=== PATIENT | female | born 1980 ===

== ENCOUNTER 2025-04-27 10:03 | Emergency (ER) | payer BC, SELFPAY ==
[2025-04-27 10:19] VITALS: BP 174/112
[2025-04-27 11:20] LABS: Urine Character Clear (Clear)
[2025-04-27 11:26] LABS: Hematocrit 42.2 % (37.0-47.0); Hemoglobin 13.9 g/dL (12.0-16.0); Mean Corp Hgb Conc. 32.9 g/dL (33.0-37.0); Mean Corpuscular Volume 89.4 fL (81.0-99.0); Nucleated Red Blood Cells % 0 %; Platelet Count 359 10^3/uL (130-400); Red Cell Dist. Width 13.8 % (11.5-14.5)
[2025-04-27 11:40] LABS: Urine Squamous Cell >30 /LPF (Few)
[2025-04-27 11:41] LABS: Urine Red Blood Cell 16-20 /HPF (0-2); Urine White Cell 40-50 /HPF (0-5)
--- NOTE | 2025-04-27 11:51 | ED.GENMED ---
Addendum entered and electronically signed by Fernando Euceda PA-C 04/30/25 12:26:
Patient's urine culture did come back positive for 100,000 CFU of E. coli. Unfortunately there was resistance to the Augmentin she was discharged home with. She saw her primary care provider yesterday who switched her antibiotic to Cipro. This is
susceptible and would likely also cover any potential GI related source. Patient aware of return precautions to the ER.
Original Note:
History of Present Illness
General
Chief Complaint: Abdominal Pain
Source: patient
Exam Limitations: none
Time Seen by Provider: 04/27/25 11:15
Nursing documentation reviewed up to this point in time: agreed with
History of Present Illness
History of Present Illness:
Patient is a 45-year-old female who presents to the emergency department for evaluation of left lower abdominal pain. Patient describes a few weeks of intermittent, dull pain in her left lower abdomen which acutely worsened over the past 5 days.
She describes a somewhat sharp pain in her left lower abdomen without radiation to back or groin. She has had frequent nausea however no episodes of vomiting. No fever, chills, diarrhea, or constipation. No chest pain or shortness of breath. She
denies any abnormal vaginal discharge. She does have an appointment scheduled with her [facility] next week as she has been experiencing frequent vaginal spotting. She has an IUD. She has had intermittent dysuria over the past few weeks.
Patient was seen by her primary care provider yesterday who suspected possible diverticulitis and referred patient for outpatient CT scan. However, they were unable to get CT scheduled prompting visit to the emergency department.
Review of Systems
Review of Systems
Allergies reviewed?: Yes
All Other Systems: ROS reviewed and negative except as documented in HPI and ROS
Phy Exam
Physical Exam
Physical Exam:
Vitals: Hypertensive and mildly tachycardic on arrival. Afebrile
General: Patient is mildly uncomfortable due to pain.
Skin: Warm and dry, no rashes or lesions
Head: Normocephalic, atraumatic
Eyes: Sclera nonicteric.
Throat: Protecting airway
Neck: Normal ROM, no cervical spine tenderness, no meningismus
Cardiac: Regular rate and rhythm, no murmurs.
Pulm: Normal respiratory effort. Lungs clear bilaterally
Abdomen: Abdomen soft. Moderate tenderness in left lower quadrant. No rebound tenderness or guarding. No focal tenderness McBurney's point. Negative Herrera sign.
Extremities: No evidence of cyanosis or edema
Neuro: AAOx3. Grossly intact.
Psychiatric: Normal affect.
Course
Orders/Labs/Results
Orders:
Orders
04/27/25 10:19
Test Result ONCE
04/27/25 10:41
Urinalysis Reflex To Culture Urgent
Date Specimen was Collected: 04/27/25
Time Specimen was Collected: 10:19
Urine Microscopic Reflex Cult Urgent
Urine Culture Urgent
CLIFF Source: U
Specimen Description:
Date Specimen was Collected: 04/27/25
Time Specimen was Collected: 10:19
04/27/25 11:20
Complete Blood Count/With Diff Urgent
04/27/25 11:30
Add On- LAB Urgent
Tests Added?: lipase
CT Abd/pelvis W Iv Cont Urgent
Comment:
Reason For Exam: LLQ pain
0.9% Sodium Chloride 1000 ml [Nss] 1,000 ml IV BOLUS
Ketorolac [Toradol] 15 mg IV NOW STA
Ondansetron Injectable [Zofran] 4 mg IV NOW STA
04/27/25 11:43
Comprehensive Metabolic Panel Urgent
HCG, Serum Qualitative Screen Urgent
Lipase Urgent
Comment: ADD ON
04/27/25 13:35
HYDROmorphone [Dilaudid] 0.5 mg IV NOW STA
04/27/25 15:13
Amoxicillin 875 mg/Clav 125 mg [Augmentin 875 mg/125 mg] 1 tablet PO NOW STA
Abnormal Lab Results
04/27/25 04/27/25 04/27/25
10:41 11:20 11:43
WBC 11.6 H 10^3/uL
(4.8-10.8)
MCHC 32.9 L g/dL
(33.0-37.0)
Absolute Neuts (auto) 8.7 H 10^3/uL
(1.4-6.5)
Lymphocytes % 17.2 L %
(20.5-51.1)
Sodium 134 L mmol/L
(135-145)
Ur Occult Blood Reflex 4+ A
(Negative)
Leukocyte Esterase Rfl 3+ A
(Negative)
Urine RBC 16-20 A /HPF
(0-2)
Urine WBC (Reflex) 40-50 A /HPF
(0-5)
Urine Bacteria (Reflex) Many A
(Negative)
Urine Albumin (Reflex) 2+ A
(Neg - Trace)
04/27/25 11:20
04/27/25 11:43
Vital Signs
Initial and Last Documented VS:
Initial Vital Signs
Temp Pulse Resp Pulse Ox
98.0 F 108 16 98
04/27/25 10:13 04/27/25 10:13 04/27/25 10:13 04/27/25 10:13
Last Documented Vital Signs
Temp Pulse Resp BP Pulse Ox
98.0 F 84 20 137/88 98
04/27/25 10:13 04/27/25 13:00 04/27/25 13:00 04/27/25 13:00 04/27/25 13:00
MDM/Problems Addressed
Differential Diagnosis Includes:
Not limited to: Diverticulitis, colitis, pyelonephritis, renal colic, ovarian cyst, etc.
MDM/Problems Addressed:
45-year-old female 2 weeks of intermittent left lower quadrant pain acutely worse in the past 2 days associated with nausea. No fever, vomiting, diarrhea. Intermittent dysuria over the past 2 weeks, as well. Patient hypertensive and mildly
tachycardic on arrival however afebrile. On exam, she appears mildly uncomfortable due to pain. Abdomen is soft with moderate tenderness localized in the left lower quadrant. No rebound or guarding. Cardio/pulmonary assessment unremarkable.
Differential as above. Possible diverticulitis. Location of pain more consistent with abdominal pathology rather than ovarian/pelvic etiology.
ED plan: Labs, UA, CT scan abdomen/pelvis. Will treat pain, give IV fluids and reassess.
Update: Labs revealed mild leukocytosis. Chemistry unremarkable. Urine somewhat equivocal for infection with 3+ leukocyte esterase and WBC, however appears contaminated with many squamous cells. CT scan with findings consistent of colitis and
descending/sigmoid colon. No ovarian pathology noted.
Patient remains afebrile and overall nontoxic. Given duration of symptoms and possible UTI�will start patient on course of antibiotics. Feel stable for discharge home with close monitoring of symptoms and strict return precautions. Advised clear
liquid diet, supportive care for pain. Patient comfortable with plan.
Chronic conditions affecting care:
N/A
Acute Exacerbation and/or Progression of Chronic Illness:
N/A
*Radiology
Radiology exam reviewed: radiology read reviewed
*Pulse Oximetry
SaO2: 98
Oxygen Mode of Delivery: Room air
Patient hypoxic: no
*EKG
Interpreted by ED Provider?: NA
*Bottling Line Operator Interpretation
Rate: Bottling Line Operator- N/A
*Critical Care Note
Total Time (30-74mins, 75-104mins- exclusive of procedures): Not Applicable
ED Attending Note
-
Portions of this chart may have been created with voice recognition software.� Occasional wrong word or��sound alike� substitutions may have occurred due to the inherent limitations of voice recognition software.
Discharge Plan
Departure
Patient Disposition: Home (Routine Discharge)
Date of Disposition: 04/27/25
Time of Disposition: 15:20
Patient with high blood pressure during this ER visit?: Yes
Condition: Good
Discharge Problem:
Colitis
Instructions: Colitis (DC), Abdominal Pain
Prescriptions:
New
amoxicillin-pot clavulanate 875-125 mg tablet
1 tab PO BID Qty: 14 0RF
Referrals:
UNKNOWN - PT DOES,NOT KNOW [Family Provider]
Activity Restrictions/Additional Instructions:
RETURN TO THE EMERGENCY DEPARTMENT WITH ANY PERSISTENT/WORSENING ABDOMINAL PAIN, INTRACTABLE NAUSEA/VOMITING, FEVERS, WORSENING IN CURRENT SYMPTOMS, OR ANY OTHER CONCERNS
- As discussed, your CT scan showed evidence of colitis of your descending/sigmoid colon. For further evaluation as your white blood cell count was mildly elevated in the emergency department. Your urine shows evidence of a possible infection
however it has been sent for culture.
- A prescription for Augmentin has been sent to your pharmacy. Please take twice a day for the next 7 days. You can continue to take Zofran as needed for nausea with prescription that you have at home.
- I would recommend a clear liquid diet over the next few days and slowly advance to low fiber as tolerated. You can take Tylenol and/Motrin as needed for pain.
- Please follow-up with your primary care provider in a few days for further evaluation/management and to ensure that your symptoms are improving
Monitor your symptoms closely and return to the emergency department with any acute worsening/new symptoms or any other concerns
Interventions
Interventions:
*Risk Screen - Suicide Last Done: 04/27/25 10:13
*General Assessment Last Done: 04/27/25 10:13
*Neglect/Abuse Screening Last Done: 04/27/25 10:13
*ED- Fall Risk Assessment Last Done: 04/27/25 15:28
*ED COVID-19 Vaccine History Last Done: 04/27/25 10:13
*ED Influenza Vaccine History Last Done: 04/27/25 10:13
*Nursing Disposition Last Done: 04/27/25 15:28
PT-Ftvjmt-[id number] Assessment Last Done: 04/27/25 13:00
Discharge Date and Time
Discharge Date/Time: 04/27/25 15:29
Print Language: CONGOLESE
[2025-04-27 12:05] LABS: HCG, Serum Qualitative Screen Negative
[2025-04-27 12:12] LABS: ALT (SGPT) 23 U/L (0-35); AST (SGOT) 27 U/L (14-36); Albumin 3.9 g/dl (3.5-5.0); Alkaline Phosphatase 49 U/L (38-126); Blood Urea Nitrogen 8 mg/dl (7-17); Calcium 8.8 mg/dl (8.4-10.2); Carbon Dioxide 25 mmol/L (22-30); Chloride 106 mmol/L (98-107); Glucose 83 mg/dl (70-99); Lipase 92 U/L (23-300); Potassium 4.6 mmol/L (3.5-5.1); Sodium 134 mmol/L (135-145); Total Protein 6.6 g/dl (6.3-8.2); eGFR > 60.00
[2025-04-27] MEDS: NSS 1000 IV (12:17)
[2025-04-27] MEDS: TORADOL 15 MG IV (12:17)
[2025-04-27] MEDS: ZOFRAN 4 MG IV (12:17)
[2025-04-27 13:00] VITALS: BP 137/88
[2025-04-27] MEDS: DILAUDID 0.5 MG IV (13:44)
[2025-04-27] MEDS: AUGMENTIN 875 MG/125 MG 1 TABLET PO (15:18)
== END 2025-04-27 15:29 | disposition home or self-care (01) ==
LOC: EMR 10:03
PROVIDERS: Emergency Medicine; EMERGENCY PHYSICIAN Emergency Medicine
DX: K52.9 Noninfective gastroenteritis and colitis, unspecified (principal); R30.0 Dysuria; Z97.5 Presence of (intrauterine) contraceptive device
CPT/HCPCS: 96374; 96375; 96361; 99284; 74177; 80053; 81003; 81015; 83690; 84703; 85025; 87077; 87086; 87186; Q9967

== ENCOUNTER → 2025-05-13 10:00 | Outpatient (REF) | payer BC, SELFPAY | LOC: RAD 10:00 | PROVIDERS: ATTENDING PHYSICIAN Internal Medicine; FAMILY PHYSICIAN Physician Assistant Medical | DX: K59.00 Constipation, unspecified (principal) | CPT/HCPCS: 74177; Q9967 ==